=== PATIENT | male | born 1945 | race Caucasian/White ===

== ENCOUNTER 2021-01-17 15:28 | Emergency (ER) | payer MEDICARE, OTHER ==
[~2021-01-17] VITALS: Ht 177.8 cm; Wt 97.5 kg
[2021-01-17] MEDS ORDERED: HYDROCODONE/APAP 5MG-325MG TAB PO ONE (16:15)
[2021-01-17] MEDS ORDERED: ULTRACET TABLE1 EACH PO (17:50)
[2021-01-17] MEDS ORDERED: IBUPROFEN600 MG PO (17:50)
== END 2021-01-17 18:00 | disposition home or self-care (01) ==
LOC: ER 17:17
DX: S22.42XA Multiple fractures of ribs, left side, initial encounter for closed fracture (principal); W01.0XXA Fall on same level from slipping, tripping and stumbling without subsequent striking against object, initial encounter; Y93.01 Activity, walking, marching and hiking; Y92.008 Other place in unspecified non-institutional (private) residence as the place of occurrence of the external cause; I10 Essential (primary) hypertension; E78.5 Hyperlipidemia, unspecified; I25.10 Atherosclerotic heart disease of native coronary artery without angina pectoris; M54.9 Dorsalgia, unspecified; G89.29 Other chronic pain
CPT/HCPCS: 71101; 99283